=== PATIENT | female | born 2000 | race Caucasian/White ===

== ENCOUNTER 2024-02-29 09:19 | Outpatient (RCR) | payer OTHER, SELFPAY ==
[2024-02-27 12:06] LABS: Hemoglobin 11.4 g/dL (12.0-15.0)
[2024-02-27 12:18] LABS: Glucose 1 Hour PP 50gm Dose 104 mg/dL
[2024-02-27 12:59] LABS: HIV 1/2 Ab P24 Ag Result Negative (Negative)
[2024-02-28 10:49] LABS: Rapid Plasma Reagin Non-Reactive (NonReactive)
[2024-02-29] MEDS: RHO(D) IMMUNE GLOBULIN 300 MCG/2 ML SYRINGE IM (16:18)
== END 2024-02-29 09:20 | disposition home or self-care (01) ==
LOC: ANHLAB 09:19
PROVIDERS: Visit Provider Advanced Practice Midwife
DX: O36.0130 Maternal care for anti-D [Rh] antibodies, third trimester, not applicable or unspecified (principal); Z36.89 Encounter for other specified antenatal screening; Z3A.00 Weeks of gestation of pregnancy not specified
CPT/HCPCS: 36415; 82947; 85014; 85018; 85461; 86592; 86703; 86850; 86900; 86901; 90384; 96372; G0432; J2790

== ENCOUNTER 2024-05-27 03:20 | Inpatient (IN) | payer OTHER, SELFPAY ==
[2024-05-27] VITALS (200 sets, daily range): BP systolic 76–157; BP diastolic 45–93; PULSE 25–164; RESP 16; TEMP 36.2–38.3; O2SAT 88–100; BMI 39.7
--- NOTE | 2024-05-27 04:06 | PC.NURSE ---
Addendum entered by Mimi Zelaya RN 05/27/24 04:54: 040- RN called CNLuis Alberto and made her aware of pts arrival to unit as well as SROM @ 0155am this morning. RN reported contractions 15 min apart that pt reports to be period cramps . Orders received to admit pt and begin LDP protocol Original Note: 401- MINA called CNM
[2024-05-27 04:18] LABS: Basophils Absolute Auto 0.1 K/mm3 (0.0-0.1); Basophils Percent Auto 0.5 % (0.2-1.2); Eosinophils Absolute Auto 0.1 K/mm3 (0-0.3); Eosinophils Percent Auto 0.7 % (0-4.4); Hematocrit 33.4 % (37.0-47.0); Hemoglobin 10.8 g/dL (12.0-15.0); Immature Granulocyte Absolute 0.13 K/mm3 (0.00-0.031); Lymphocytes Absolute Auto 2.58 K/mm3 (0.9-3.2); Lymphocytes Percent Auto 20.2 % (18.3-44.2); Mean Corpuscular HGB Conc 32.3 g/dl (32-36); Mean Corpuscular Hemoglobin 27.1 pg (26-34); Mean Corpuscular Volume 83.7 fl (80-100); Mean Platelet Volume 10.6 fl (7.4-10.4); Monocytes Absolute Auto 0.9 K/mm3 (0.1-0.6); Monocytes Percent Auto 7.2 % (2.6-8.5); Neutrophils Percent Auto 70.4 % (45.5-73.1); Platelet Count Result 267 k/mm3 (150-375); Red Blood Count 3.99 M/mm3 (4.2-5.4); Red Cell Distribution Width 13.5 % (11.5-14.5); White Blood Count 12.8 K/mm3 (4.5-10.0)
[2024-05-27] MEDS: OXYTOCIN 30 UNITS/NS 500 ML 30 UNITS/500 ML BAG IV CONT (04:34)
[2024-05-27] MEDS: LACTATED RINGERS 1,000 ML 125 ML IV CONT ×2 (04:35→11:22)
[2024-05-27 04:40] LABS: Rapid Plasma Reagin Non-Reactive (NonReactive)
[2024-05-27 05:08] LABS: HIV 1/2 Ab P24 Ag Result Negative (Negative)
--- NOTE | 2024-05-27 08:00 | WPDOBADMIT ---
Obstetrics - Admit Note Admission Note: record reviewed. No pertinent additions to the history and/or any subsequent changes in the physical findings that are not consistent with the expected course of the were found. Additions to the history and/or subsequent changes in the physical findings follow. Pt arrived after SROM, clear fluid, SVE 1-2/80/-2 IUPC placed
--- NOTE | 2024-05-27 20:15 | PM.OBPRVD ---
OB - Vaginal Delivery Note Procedure Delivery date: 05/27/24 Delivery augmentation: Pitocin Delivery monitor: External FHT and Internal Uterine Route of delivery: Episiotomy description: None Laceration Description: Perineal - 1st Degree Delivery repair: vicryl Specimen: No Quantitative Blood Loss (ml): 75 Anesthesia type: Epidural Disposition: Floor Complications: No immediate complications [place] Baby Date of : 05/27/24 Time of : 20:03 Gestational Age by Date: 40 gender: Female presentation: vertex position: Left Occiput Anterior Placenta delivery description: Spontaneous Cord Vessel Description: 3 Vessels, Clamped/Cut and Delayed Cord Clamping score one minute: 8 score five minutes: 9
[2024-05-27] MEDS: OXYTOCIN 30 UNITS/NS 500 ML 30 UNITS/500 ML BAG 125 UNITS IV CONT (20:34)
[2024-05-27] MEDS: DOCUSATE SODIUM 100 MG CAPSULE PO (23:14)
[2024-05-27] MEDS: WITCH HAZEL 40 PADS 1 PAD TOPICAL (23:14)
[2024-05-27] MEDS: BENZOCAINE 20% AER SPR (*SP) 56 GM CAN 1 SPRAY TOPICAL (23:14)
--- NOTE | 2024-05-27 23:19 | OBPPTRN ---
Patient transferred to post room #278 via wheelchair. Support person present. Oriented to unit, room, information board, rooming in, admission packet and security measures. Patient verbalizes understanding.
[2024-05-28 04:10] VITALS: BP 116/61; PULSE 95; RESP 16; TEMP 36.7; O2SAT 100
--- NOTE | 2024-05-28 05:13 | PM.OBPNVD ---
OB - PN: Subj Subjective Date/time seen: 05/28/24 05:13 Interval history: pp day 1 doing well OB - PN: Obj Data Labs 05/27/24 04:08 OB - PN A/P Plan day: 1 Plan: routine care and discharge home Time Spent With Patient Time: Total time spent is greater than 50% in coordination of care (as documented) at patient's floor/unit and/or counseling patient: Review of Systems Review of Systems: All systems reviewed & are unremarkable except as noted in HPI and below Exam Const: General: cooperative, healthy appearing and comfortable Chest: Chest palpation & inspection: normal inspection of the chest Cardio: Rate: regular rate Back/Spine/Pelvis: Back: no CVA tenderness Skin: General skin exam: normal color Neuro: General: patient oriented x3
[2024-05-28 05:57] LABS: Hematocrit 35.1 % (37.0-47.0); Hemoglobin 10.7 g/dL (12.0-15.0)
[2024-05-28 07:45] VITALS: BP 119/78; PULSE 85; RESP 16; TEMP 36.6; O2SAT 99
--- NOTE | 2024-05-28 07:53 | WPDANLDPN2 ---
Anes-Prog Note L&D Date/Time: 05/28/24 07:53 Comfortable throughout: labor and delivery Neuraxial method: epidural Epidural/Spinal procedure site: clean & non-tender Neuro status: Neuro function grossly intact. Cardiovascular status: normal Respiratory status: normal Airway patency: baseline Mental status: baseline Post-Op hydration status: normal Vital Signs: Last Vital Signs Temp 36.7 C 05/28/24 04:10 Pulse 95 05/28/24 04:10 Resp 16 05/28/24 04:10 BP 116/61 05/28/24 04:10 Pulse Ox 100 05/28/24 04:10 O2 Del Method Room Air 05/28/24 04:10 Pain score (VAS): 3/10 I/O: Intake & Output 05/27/24 05/27/24 05/28/24 15:59 23:59 07:59 Intake Total 847.9 Output Total 220 Balance 847.9 -220 Post-procedural complaints: none Patient feedback: Patient satisfied with anesthetic care.
[2024-05-28 12:23] VITALS: BP 120/79; PULSE 84; RESP 16; TEMP 36.5; O2SAT 98
[2024-05-28 21:45] VITALS: BP 125/89; PULSE 88; RESP 20; TEMP 36.4; O2SAT 100
[2024-05-28] MEDS: RHO(D) IMMUNE GLOBULIN 300 MCG/2 ML SYRINGE IM (21:49)
[2024-05-28] MEDS: IBUPROFEN 600 MG TABLET PO (21:55)
[2024-05-29 07:35] VITALS: BP 130/81; PULSE 89; RESP 16; TEMP 37; O2SAT 99
--- NOTE | 2024-05-29 07:47 | PM.OBPNVD ---
OB - PN: Subj Subjective Date/time seen: 05/29/24 07:47 Interval history: PPD#2 Doing well, no issues Tolerating general diet Voiding without issue Baby doing well, had blood cultures drawn yesterday, waiting on results Discussed no care bed if baby unable to be discharged OB - PN: Obj Data Labs 05/28/24 04:51 Labs: Laboratory Results - last 24 hr 05/28/24 04:51 Blood Type A Negative Antibody Screen TNP Screen Negative Baby's Blood Type O pos Baby's MINI Negative Doses of RhIg Required 1 OB - PN A/P Assessment and Plan (1) Vaginal delivery: Code(s): O80 - Encounter for full-term uncomplicated delivery Status: Acute Plan day: 1 Plan: routine care and discharge home Time Spent With Patient Time: Total time spent is greater than 50% in coordination of care (as documented) at patient's floor/unit and/or counseling patient: Review of Systems Review of Systems: All systems reviewed & are unremarkable except as noted in HPI and below Exam Const: General: comfortable and no acute distress Orientation/consciousness: patient oriented x3 Resp: Effort & Inspection: normal respiratory effort
--- NOTE | 2024-05-29 07:49 | PM.OBDSVD ---
DS: Admitting Diagnosis Discharge Date 05/29/24 Admitting Diagnosis labor DS: Discharge Diagnosis Discharge Diagnosis (1) Vaginal delivery: Code(s): O80 - Encounter for full-term uncomplicated delivery Status: Acute OB - DS: Summary OB Procedures : None OB Procedures Intrapartum: Spontaneous Vag Delivery OB Procedures: : None Peripartum Data Laceration Description: Perineal - 1st Degree Episiotomy description: None Time Spent with Patient Time attestation: Total time spent providing and/or coordinating discharge services: DS: Data Data Completed and Pending Labs on day of discharge: Labs from last 24 hours 05/28/24 04:51 Blood Type A Negative Antibody Screen TNP Screen Negative Baby's Blood Type O pos Baby's MINI Negative Doses of RhIg Required 1 Discharge Plan Discharge Attending physician on discharge: Manish Ruiz Consulting providers: Екатерина Salomon Discharging Clinician: Manish Ruiz Patient Disposition: Home, Self-Care Activity: may shower, as tolerated and pelvic rest Diet: as tolerated Patient Instructions: Antibiotic Form Stand Alone Forms: General Discharge Information Follow-up/Referrals: Екатерина Salomon CNM [Certified Nurse Equity Sales Assistant] - 4 Weeks Discharge Medications: New docusate sodium 100 mg Capsule 100 mg PO BID PRN (Reason: Constipation) Qty: 60 0RF ibuprofen 600 mg Tablet 600 mg PO Q6H PRN (Reason: Cramping) Qty: 30 0RF Continued Classic 28 mg iron- 800 mcg Tablet 1 tablet PO DAILY pantoprazole 20 mg Tablet,Delayed Release (Dr/Ec) 20 mg PO HS Date of admission: 05/27/24 03:20 Primary Care Provider: PHYSICIAN,TREASURY AGENT Admitting Provider: Williams Vega Attending physician on admission: Williams Vega Condition: Stable
[2024-05-29] MEDS: DOCUSATE SODIUM 100 MG CAPSULE PO ×2 (07:54)
[2024-05-29] MEDS: IBUPROFEN 600 MG TABLET PO (07:54)
[2024-05-30 12:29] VITALS: BP 125/80; PULSE 89; RESP 14; TEMP 36.7
== END 2024-05-29 16:42 | disposition home or self-care (01) | DRG 807 ==
LOC: ANHLDR 06:24 → ANHOB2 05-29 07:49 → ANHLDR 06-03 10:41 → ANHOB2 06-03 10:41
PROVIDERS: Advanced Practice Midwife; Admitting Provider Obstetrics & Gynecology; Visit Provider Obstetrics & Gynecology
DX: O70.0 First degree perineal laceration during delivery (principal); Z37.0 Single live birth; Z3A.40 40 weeks gestation of pregnancy
CPT/HCPCS: 36415; 85014; 85018; 85025; 85461; 86592; 86703; 86850; 86900; 86901; 90384; A9270; G0432; J2590; J2790; J2795; J7120